=== PATIENT | male | born 1970 | race Caucasian/White ===

== ENCOUNTER 2018-08-11 07:46 | Day surgery (SDC) | payer BC ==
[~2018-08-11] VITALS: Ht 190.5 cm; Wt 102.0 kg
[~2018-08-11 07:46] MED LIST: PANT40TA4 PO
[2018-08-11 08:28] VITALS: Ht 190.5 cm; Wt 102.0 kg
[2018-08-11] MEDS ORDERED: HYDROXYZINE (08:33)
[2018-08-11] MEDS ORDERED: LANSOPRAZOLE (08:33)
[2018-08-11] MEDS ORDERED: ATORVASTATIN (08:33)
[2018-08-11] MEDS ORDERED: VIT B6 (08:33)
[2018-08-11] MEDS ORDERED: JARDIANCE (08:33)
[2018-08-11] MEDS ORDERED: BREO (08:33)
[2018-08-11] MEDS ORDERED: GABAPENTIN (08:33)
[2018-08-11] MEDS ORDERED: LOSARTAN (08:33)
[2018-08-11] MEDS ORDERED: METFORMIN (08:33)
--- NOTE | 2018-08-11 09:30 | PREAC ---
Date/Time of Note Date/Time of Note DATE: 08/11/18 TIME: :28 Anesthesia Eval and Record Evaluation Time Pre-Procedure Interview DATE: 08/11/18 TIME: :28 Age 47 Sex male NPO: 8 hrs Preoperative diagnosis GERD, Abdominal pain Planned procedure EGD, Colonoscopy Past Medical History Past Medical History: Includes Cardio: HTN, Dyslipidemia Endo: Diabetes Pulm: COPD, Asthma Surgery & Anesthesia Issues No known issue Meds Anticoagulation: No Beta Quin within 24 hr: No Reason Beta Quin not given: Pt. not on B-Quin Reported Medications [Breo] No Conflict Check 08/11/18 [Hydroxyzine] No Conflict Check 08/11/18 [Jardiance] No Conflict Check 08/11/18 [Vit B6] No Conflict Check 08/11/18 [Atorvastatin] No Conflict Check 08/11/18 [Atorvastatin] No Conflict Check 08/11/18 [Lansoprazole] No Conflict Check 08/11/18 [Gabapentin] No Conflict Check 08/11/18 [Losartan] No Conflict Check 08/11/18 [Metformin] No Conflict Check 08/11/18 Discontinued Reported Medications Pantoprazole (Protonix) 40 Mg Tabec, 40 MG PO DAILY 09/12/13 Meds reviewed: Yes Allergies Coded Allergies: metronidazole (Unverified Allergy, Unknown, RASH, 08/11/18) Allergies Reviewed: Yes Labs/Studies Labs Reviewed: Reviewed by anesthesiologist test: N/A Studies: ECG Pre-procedure Exam Airway: Adequate mouth opening, Adequate thyromental dist Mallampati: Mallampati II Teeth: Normal Lung: Normal Heart: Normal ASA Physical Status ASA physical status: 3 Emergency: None Planned Anesthetic General/MAC: MAC Planned Pain Management Parenteral pain med Pre-operative Attestations Prior to commencing anesthesia and surgery, the patient was re-evaluated, there was verification of: *The patient's identity *The results of appropriate recent lab work and preoperative vital signs *The above evaluation not changing prior to induction *Anesthetic plan, risk benefits, alternative and complications discussed with patient/family; questions answered; patient/family understands, accepts and wishes to proceed. SHERMAN HENDRIX MD Aug 11, 2018 09:30
[2018-08-11] MEDS ORDERED: LIDOCAINE 2% (SDV) 5 ML INJ ONE (09:31)
[2018-08-11] MEDS ORDERED: PROPOFOL 60 ML ONE (09:31)
[2018-08-11 09:52] VITALS: BP 142/78; PULSE 60; RESP 22
--- NOTE | 2018-08-11 10:17 | PAC ---
Date/Time of Note Date/Time of Note DATE: 08/11/18 TIME: 10:16 Post-Anesthesia Notes Post-Anesthesia Note Last documented vital signs Vital Signs Date Temp Pulse Resp B/P (MAP) Pulse Ox O2 O2 Flow FiO2 Time Delivery Rate 08/11/18 98.2 60 22 142/78 99 Room Air 09:52 (99) Activity: WNL Respiratory function: WNL Cardiovascular function: WNL Mental status: Baseline Pain reasonably controlled: Yes Hydration appropriate: Yes Nausea/Vomiting absent: Yes Comments BP:134/67, P:78, Spo2:100%, T:98,8 SHERMAN HENDRIX MD Aug 11, 2018 10:17
[2018-08-11 10:42] VITALS: BP 125/86; PULSE 58; RESP 12
== END 2018-08-11 11:20 | disposition home or self-care (01) ==
LOC: GIL 07:46
PROVIDERS: ATTEND Internal Medicine Gastroenterology
DX: Z12.11 Encounter for screening for malignant neoplasm of colon (principal); K29.60 Other gastritis without bleeding; K64.4 Residual hemorrhoidal skin tags; E78.5 Hyperlipidemia, unspecified; E11.9 Type 2 diabetes mellitus without complications; I10 Essential (primary) hypertension; J44.9 Chronic obstructive pulmonary disease, unspecified; Z79.84 Long term (current) use of oral hypoglycemic drugs
CPT/HCPCS: 43239; 45378; 82962; 88305; 88312; Z7610

== ENCOUNTER 2018-10-08 13:17 | Inpatient (IN) | payer BC ==
[~2018-10-08] VITALS: Ht 190.5 cm; Wt 101.6 kg
[~2018-10-08 13:17] MED LIST changes: +ATORVASTATIN; +BREO; +GABAPENTIN; +HYDROXYZINE; +JARDIANCE; +LANSOPRAZOLE; +LOSARTAN; +METFORMIN; -PANT40TA4 PO; +VIT B6
--- NOTE | 2018-10-08 13:39 | ERD ---
ER Documentation Chief Complaint Chief Complaint HPI This is a 48-year-old man with history of hypertension, diabetes mellitus, dysli pidemia presenting to [place] this morning with complaints of chest pain beginning yesterday. At [facility] emergency department work-up was done and labs were normal although given his past medical history and his complaints he was admitted to telemetry and his health insurance directed him to [facility] where he was accepted for admission by Dr. Page. Patient was transported here by EMS without complications, and he is asymptomatic at this time without complaints of pain. ROS All systems reviewed and are negative except as per history of present illness. Medications Home Meds Reported Medications Atorvastatin Calcium (Atorvastatin Calcium) 10 Mg Tablet, 10 MG PO QHS, #30 TAB 10/08/18 Metformin Hcl* (Metformin Hcl*) 500 Mg Tablet, 500 MG PO WITH BREAKFAST DINNE, #60 TAB 10/08/18 Empagliflozin (Jardiance) 10 Mg Tablet, 10 MG PO QAM, TAB 10/08/18 Gabapentin* (Gabapentin*) 100 Mg Capsule, 100 MG PO BID, #90 CAP 10/08/18 Losartan Potassium* (Losartan Potassium*) 50 Mg Tablet, 50 MG PO DAILY, TAB 10/08/18 Discontinued Reported Medications [Breo] No Conflict Check 08/11/18 [Hydroxyzine] No Conflict Check 08/11/18 [Jardiance] No Conflict Check 08/11/18 [Vit B6] No Conflict Check 08/11/18 [Atorvastatin] No Conflict Check 08/11/18 [Atorvastatin] No Conflict Check 08/11/18 [Lansoprazole] No Conflict Check 08/11/18 [Gabapentin] No Conflict Check 08/11/18 [Losartan] No Conflict Check 08/11/18 [Metformin] No Conflict Check 08/11/18 Allergies Allergies: Coded Allergies: metronidazole (Unverified Allergy, Unknown, RASH, 10/08/18) Uncoded Allergies: 'CONTRAST' (Allergy, Unknown, 10/08/18) PMhx/Soc HTN, Dyslipidemia, Diabetes, COPD, Asthma History of Surgery: No Anesthesia Reaction: No Hx Neurological Disorder: No Hx Respiratory Disorders: Yes (ASTHMA) Hx Cardiac Disorders: Yes (HTN; HIGH CHOLESTEROL) Hx Psychiatric Problems: No Hx Miscellaneous Medical Probl: No Hx Alcohol Use: No Hx Substance Use: No Hx Tobacco Use: No FmHx Family History: No diabetes Physical Exam Vitals Vital Signs Date Temp Pulse Resp B/P (MAP) Pulse Ox O2 O2 Flow FiO2 Time Delivery Rate 10/08/18 62 16 118/70 100 Nasal 2.0 14:40 (86) Cannula 10/08/18 Nasal 2 14:04 Cannula 10/08/18 98.1 61 20 122/84 96 13:45 (97) Per nurse's records Physical Exam GENERAL: Well-developed, well-nourished, well-hydrated, in no apparent distress, afebrile HEENT: Moist mucous membranes, pink conjunctiva, no cervical spine tenderness or step-off deformities, no goiter, no jaundice or icterus NEURO: Alert and oriented 3, cranial nerves II through XII intact bilaterally, pupils equal round reactive to light, CARDIAC: Regular rate and rhythm, no murmurs rubs or gallops LUNGS: Clear bilaterally no wheezing crackles or stridor ABDOMEN: Soft nontender, no guarding, no rigidity, no rebound, no psoas sign no obturator sign. SKIN: Warm and dry to touch, no abrasions, contusions, EXTREMITIES: No clubbing cyanosis or edema, calves are bilaterally symmetrical, no Homans sign, no popliteal cord sign. Distal pulses equal and bilateral Result Diagram: 10/08/18 1404 10/08/18 1404 Results 24 hrs Laboratory Tests Test 10/08/18 14:04 White Blood Count 6.3 10^3/ul Red Blood Count 5.34 10^6/ul Hemoglobin 16.3 g/dl Hematocrit 47.6 % Mean Corpuscular Volume 89.1 fl Mean Corpuscular Hemoglobin 30.5 pg Mean Corpuscular Hemoglobin Concent 34.2 g/dl Red Cell Distribution Width 12.7 % Platelet Count 233 10^3/UL Mean Platelet Volume 11.7 fl Immature Granulocytes % 0.200 % Neutrophils % 56.9 % Lymphocytes % 32.3 % Monocytes % 8.9 % Eosinophils % 1.1 % Basophils % 0.6 % Nucleated Red Blood Cells % 0.0 /100WBC Immature Granulocytes # 0.010 10^3/ul Neutrophils # 3.6 10^3/ul Lymphocytes # 2.0 10^3/ul Monocytes # 0.6 10^3/ul Eosinophils # 0.1 10^3/ul Basophils # 0.0 10^3/ul Nucleated Red Blood Cells # 0.0 10^3/ul Sodium Level 142 mmol/L Potassium Level 4.0 mmol/L Chloride Level 107 mmol/L Carbon Dioxide Level 26 mmol/L Anion Gap 9 Blood Urea Nitrogen 14 mg/dl Creatinine 0.76 mg/dl Est Glomerular Filtrat Rate mL/min > 60 mL/min Glucose Level 126 mg/dl Calcium Level 9.3 mg/dl Creatine Kinase 124 IU/L Creatine Kinase Index 0.6 Creatinine Kinase MB (Mass) 0.74 ng/ml Troponin I < 0.012 ng/ml Current Medications Medications Dose Sig/Mati Start Time Status Last (Trade) Ordered Route PRN Stop Time Admin Dose Reason Admin Sodium 500 ml @ Q1H STAT 10/08/18 DC 10/08/18 Chloride 500 mls/hr IV 13:47 14:13 10/08/18 14:46 Ibuprofen 600 mg ONCE ONCE 10/08/18 DC 10/08/18 (Motrin) PO 14:30 14:38 10/08/18 14:31 Procedures/MDM IV line was established 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 Patient was afebrile I reviewed [facility] EKG revealed a normal sinus rhythm 71 bpm, right ventricular conduction delay QRS duration 102 ms, left axis deviation, no concerning ST elevations or depressions noted Repeat CBC and electrolytes are normal, troponin negative EKG in our emergency department revealed a sinus bradycardia 52 bpm, normal axis, narrow QRS complex, no concerning ST elevations or depressions noted, diffuse flattened T waves I spoke to admitting physician Dr. Page and he is aware the patient is in our emergency department and agreed with our plan. Patient to be admitted to telemetry setting. Departure Diagnosis: Primary Impression: Chest pain Chest pain type: unspecified Qualified Codes: R07.9 - Chest pain, unspecified Condition: CHINTAN Doyle MD October 08, 2018 13:39
[2018-10-08] MEDS ORDERED: SOD CHLORIDE 0.9% 500 ML IV STA (13:47)
[2018-10-08] MEDS ORDERED: GABA100C14 PO (14:06)
[2018-10-08] MEDS ORDERED: LOSA50TA14 PO (14:06)
[2018-10-08] MEDS ORDERED: METF500T24 PO (14:07)
[2018-10-08] MEDS ORDERED: ATOR10TA65 PO (14:07)
[2018-10-08] MEDS ORDERED: EMPA10TA PO (14:07)
[2018-10-08] MEDS ORDERED: IBUPROFEN 600 MG TAB PO ONE (14:30)
[2018-10-08 19:15] VITALS: BP 126/76; PULSE 53; RESP 19
[2018-10-08] MEDS ORDERED: NITROGLYCERIN (SL) 0.4 MG TAB SL PRN ×2 (19:30)
[2018-10-08] MEDS ORDERED: IBUPROFEN 400 MG TAB PO PRN (19:30)
[2018-10-08 20:00] VITALS: PULSE 56; Ht 190.5 cm; Wt 101.6 kg
[2018-10-08] MEDS ORDERED: GLUCOSE GEL 15 GRAM TUBE PO PRN ×2 (20:00)
[2018-10-08] MEDS ORDERED: GLUCOSE GEL 15 GRAM TUBE BUCCAL PRN (20:00)
[2018-10-08] MEDS ORDERED: GLUCAGON 1 MG INJ IM PRN (20:00)
[2018-10-08] MEDS ORDERED: DEXTROSE 50% 50 ML SYRINGE IV PRN ×2 (20:00)
[2018-10-08] MEDS: GABAPENTIN 100 MG CAP PO SCH (20:18)
[2018-10-08] MEDS: ACCU-CHEK XX SCH (20:18)
[2018-10-08] MEDS ORDERED: ATORVASTATIN 10 MG TAB PO SCH (21:00)
[2018-10-08] MEDS ORDERED: ACCU-CHEK XX SCH (21:00)
--- NOTE | 2018-10-08 21:34 | QN ---
Documentation Comment [id number] MADDY ALSTON MD October 08, 2018 21:34
[2018-10-09] VITALS (8 sets, daily range): BP systolic 116–127; BP diastolic 77–89; PULSE 53–69; RESP 18–20
--- NOTE | 2018-10-09 00:09 | CONS ---
DATE OF ADMISSION: 10/08/2018 DATE OF CONSULTATION: 10/08/2018 REASON FOR CONSULTATION: Chest pain. REQUESTING PHYSICIAN: Yon Alston MD HISTORY OF PRESENT ILLNESS: Mr. 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 The patient describes the chest pain to me as a stabbing pain, but to the outside hospital described as a burning sensation similar to his history of gastroesophageal reflux disease. The patient additionally told the outside hospital that he had a chest pain radiating to his arm the day before. He tells me that this is the first time he had any pain similar to this. At the outside hospital, the patient's blood pressure was 145/80, pulse of 74, afebrile, satting 98%. The patient's labs notable for sodium of 140, potassium 3.7, creatinine 0.9 and BUN 15. Troponin negative. INR of less than 1. White blood cell count 7.4, platelet count 212. The patient's electrocardiogram was interpreted as having normal sinus rhythm with no significant ST elevations or depressions. EKG is not available in the chart for my review. The patient was treated Metoprolol 50, nitro paste 1 inch, aspirin 162 mg and subsequently transferred to [facility] due to insurance reasons. Since arrival at [facility], the patient then has had improvement in chest pain. He denies ongoing chest pain at this time. The patient's vital signs here have been relatively stable with very mild bradycardia to 59 and the patient has a troponin negative x1 here. PAST MEDICAL HISTORY: As above in HPI. MEDICATIONS PRIOR TO ADMIT: 1. Atorvastatin 10 mg at bedtime. 2. Losartan 50 mg daily. 3. Gabapentin 100 mg b.i.d. 4. Metformin 500 mg daily. 5. Jardiance. ALLERGIES: 1. FLAGYL. 2. CONTRAST. SOCIAL HISTORY: No tobacco, ETOH or illicit drug use. FAMILY HISTORY: No history of sudden cardiac or early CAD. REVIEW OF SYSTEMS: As above in HPI. CONSTITUTIONAL: No fevers or chills. PULMONARY: Current shortness of breath. CARDIOVASCULAR: Chest pain. GASTROINTESTINAL: No vomiting. GENITOURINARY: No renal failure. PSYCHIATRIC: No documented psych history. NEUROLOGIC: No documented history of CVA. ENDOCRINE: Diabetes mellitus. PHYSICAL EXAMINATION: VITAL SIGNS: Temperature 98, blood pressure 118/70, pulse 60, respirations 18, satting 100% on 2 liters. GENERAL: The patient is alert, awake, in no acute distress with intermittent chest pain. NECK: JVP approximately 8 cm water. CHEST: Fair air movement throughout. HEART: Regular rate and rhythm. Normal S1, S2, I/ systolic murmur, nondisplaced PMI. ABDOMEN: Positive bowel sounds, soft. EXTREMITIES: No significant pitting edema, 1+ pulses bilaterally posterior tibial. LABORATORY DATA: Most recent from [facility], white blood cell count 6.3, hemoglobin 6.3, platelet count 233. Sodium 142, potassium 4.0, creatinine 0.7, BUN 14. Troponin negative. IMAGING STUDIES: No imaging studies for my review at this time. ELECTROCARDIOGRAM: EKG from [place] is in the chart, reveals normal sinus rhythm with a rate of 71 with normal axis, incomplete right bundle branch block, no significant ST-T abnormalities. IMPRESSION: 1. Chest pain, somewhat atypical for a true cardiac etiology. 2. Hypertension under reasonable control. 3. Dyslipidemia. 4. Diabetes mellitus. 5. Incomplete right bundle branch block on EKG. RECOMMENDATIONS: 1. At this time, would complete the patient's rule out for myocardial infarction to ensure the patient's chest pain is not due to acute coronary syndromes or acute myocardial infarction. 2. Would check a 2D echo for reassessment of patient's ejection fraction, wall motion and to rule out any major valve abnormalities. 3. Check serial EKGs to assess for ongoing changes; EKG in the morning, EKG for complaints of chest pain or change in rhythm. 4. We will attempt to give the patient sublingual nitroglycerin for recurrent episodes of chest pain and follow response. 5. Agree with dose of ibuprofen which the patient has gotten and does not have any more chest pain at this time. The chest pain is concerning for possible costochondritis the way he describes it at this time versus GERD as described earlier to [place] and, therefore, will additionally give the patient a proton pump inhibitor and follow response. Thank you for allowing me to take part in the care of this patient. I will continue to follow very closely with you with recommendations to be made as the patient progresses through his inpatient hospital clinical course. Dictated By: GUILLERMO AGARWAL/NTS Conf#: [id number] DID#: [id number] CC: YON ALSTON MD;*EndCC* MTDD
--- NOTE | 2018-10-09 01:29 | HP ---
DATE OF ADMISSION: 10/08/2018 HISTORY OF PRESENT ILLNESS: The patient is a young male with history of dyspepsia. Previously, patient presented with chest pain to [facility], transferred here for further management. Blood pressure 123/76. The patient has history of dyspepsia and gastritis. PAST MEDICAL HISTORY: Positive for dyspepsia, gastritis, hypertension. ALLERGY HISTORY: CONTRAST SOCIAL HISTORY: Negative. FAMILY HISTORY: Negative. MEDICATION HISTORY: At home, patient is on: 1. Atorvastatin. 2. The patient is on gabapentin. 3. Losartan. 4. Metformin. REVIEW OF SYSTEMS: HEENT: Unremarkable. RESPIRATORY: Unremarkable. CARDIOVASCULAR: No chest pain or palpitation at this point. ABDOMEN: Unremarkable. EXTREMITIES: Unremarkable. MUSCULOSKELETAL: Unremarkable. PHYSICAL EXAMINATION: GENERAL: The patient is awake and alert. VITAL SIGNS: Stable. HEENT: Head is atraumatic, normocephalic. Pupils equal, reactive. NECK: Supple. No JVD. LUNGS: Clear. CARDIOVASCULAR: S1, S2 are normal. ABDOMEN: Soft, nontender. Bowel sounds present. No palpable mass. EXTREMITIES: No cyanosis, clubbing, or edema. CENTRAL NERVOUS SYSTEM: The patient is awake, alert with no focal deficit. IMPRESSION: 1. Acute coronary syndrome. 2. chest pain. 3. Dyspepsia. 4. Hypertension. 5. Diabetes mellitus. PLAN: To continue home medication. Cardiology consultation. PPI and aspirin. Orders were done. Dictated By: MADDY ALSTON MD BS/BRENDA Conf#: [id number] DID#: [id number] MTDD
[2018-10-09] MEDS ORDERED: PANTOPRAZOLE (EC) 40 MG TAB PO SCH (06:00)
[2018-10-09] MEDS: ACCU-CHEK XX SCH ×2 (07:00→11:24)
[2018-10-09] MEDS: INSULIN ASPART [NOVOLOG] 3 ML PEN SC SCH ×2 (07:52→11:24)
[2018-10-09] MEDS ORDERED: EMPAGLIFLOZIN 10 MG TABLET PO SCH (08:00)
[2018-10-09] MEDS ORDERED: metFORMIN 500 MG TAB PO SCH (08:00)
[2018-10-09] MEDS: GABAPENTIN 100 MG CAP PO SCH (08:35)
[2018-10-09] MEDS ORDERED: LOSARTAN 50 MG TAB PO SCH (09:00)
[2018-10-09] MEDS ORDERED: ASPIRIN 81 MG TAB PO SCH (09:00)
--- NOTE | 2018-10-09 11:04 | PN ---
Date/Time of Note Date/Time of Note DATE: 10/09/18 TIME: 11:04 Assessment/Plan VTE Prophylaxis Risk score (from [facility] [place]0 risk: 1 SCD applied (from [facility] [place]): No SCD contraindicated: low risk/ambulating Pharmacological prophylaxis: NA/contraindicated Pharm contraindication: low risk/ambulating Lines/Catheters IV Catheter Type (from [facility] [place]): [place] Assessment/Plan Hospital Course 1. Acute coronary syndrome.Rulled out. trop is negative 2. GERD 3. Dyspepsia. 4. Hypertension, controlled. 5. Diabetes mellitus type II controlled with current meds. 6. Overweight 7. Dyslipidemia Assessment/Plan Cardiology consultation seen. -start Lopid to Atorvastatin, diet explain - PPI and carafate -EGD and colonoscopy results from previous reviewed, showed gastritis -pt is ambulating. - Result Diagram: 10/09/1821210/09/18212 Results 24hrs Laboratory Tests Test 10/08/18 14:04 10/08/18 20:02 10/08/18 20:25 10/09/18 02:13 White Blood Count 6.3 8.4 # Red Blood Count 5.34 5.26 Hemoglobin 16.3 16.5 Hematocrit 47.6 47.5 Mean Corpuscular 89.1 90.3 Volume Mean Corpuscular 30.5 31.4 Hemoglobin Mean Corpuscular 34.2 34.7 Hemoglobin Concent Red Cell 12.7 12.9 Distribution Width Platelet Count 233 227 Mean Platelet Volume 11.7 H 12.1 H Immature 0.200 0.200 Granulocytes % Neutrophils % 56.9 56.3 Lymphocytes % 32.3 34.1 Monocytes % 8.9 7.1 Eosinophils % 1.1 1.8 Basophils % 0.6 0.5 Nucleated Red Blood 0.0 0.0 Cells % Immature 0.010 0.020 Granulocytes # Neutrophils # 3.6 4.7 Lymphocytes # 2.0 2.9 Monocytes # 0.6 0.6 Eosinophils # 0.1 0.2 Basophils # 0.0 0.0 Nucleated Red Blood 0.0 0.0 Cells # Sodium Level 142 141 Potassium Level 4.0 4.1 Chloride Level 107 106 Carbon Dioxide Level 26 26 Anion Gap 9 9 Blood Urea Nitrogen 14 16 Creatinine 0.76 0.84 Est Glomerular > 60 > 60 Filtrat Rate mL/min Glucose Level 126 139 Calcium Level 9.3 9.0 Creatine Kinase 124 103 109 Creatine Kinase 0.6 0.6 0.7 Index Creatinine Kinase MB 0.74 0.64 0.73 (Mass) Troponin I < 0.012 < 0.012 < 0.012 Bedside Glucose 125 Triglycerides Level 318 H Cholesterol Level 163 LDL Cholesterol, 75 Calculated HDL Cholesterol 24 L Cholesterol/HDL 6.7 Ratio Test 10/09/18 07:52 Bedside Glucose 123 Exam/Review of Systems Exam Vitals Vital Signs Date Temp Pulse Resp B/P (MAP) Pulse Ox O2 O2 Flow FiO2 Time Delivery Rate 10/09/18 59 08:17 10/09/18 97.8 19 125/81 97 07:17 (96) 10/09/18 2.0 05:15 10/08/18 Nasal 20:00 Cannula Intake and Output 10/08/18 10/08/18 10/09/18 1515:00 23:00 07:00 IntakeIntake Total 500 ml 400 ml BalanceBalance 500 ml 400 ml Results Results 24hrs Laboratory Tests Test 10/08/18 14:04 10/08/18 20:02 10/08/18 20:25 10/09/18 02:13 White Blood Count 6.3 8.4 # Red Blood Count 5.34 5.26 Hemoglobin 16.3 16.5 Hematocrit 47.6 47.5 Mean Corpuscular 89.1 90.3 Volume Mean Corpuscular 30.5 31.4 Hemoglobin Mean Corpuscular 34.2 34.7 Hemoglobin Concent Red Cell 12.7 12.9 Distribution Width Platelet Count 233 227 Mean Platelet Volume 11.7 H 12.1 H Immature 0.200 0.200 Granulocytes % Neutrophils % 56.9 56.3 Lymphocytes % 32.3 34.1 Monocytes % 8.9 7.1 Eosinophils % 1.1 1.8 Basophils % 0.6 0.5 Nucleated Red Blood 0.0 0.0 Cells % Immature 0.010 0.020 Granulocytes # Neutrophils # 3.6 4.7 Lymphocytes # 2.0 2.9 Monocytes # 0.6 0.6 Eosinophils # 0.1 0.2 Basophils # 0.0 0.0 Nucleated Red Blood 0.0 0.0 Cells # Sodium Level 142 141 Potassium Level 4.0 4.1 Chloride Level 107 106 Carbon Dioxide Level 26 26 Anion Gap 9 9 Blood Urea Nitrogen 14 16 Creatinine 0.76 0.84 Est Glomerular > 60 > 60 Filtrat Rate mL/min Glucose Level 126 139 Calcium Level 9.3 9.0 Creatine Kinase 124 103 109 Creatine Kinase 0.6 0.6 0.7 Index Creatinine Kinase MB 0.74 0.64 0.73 (Mass) Troponin I < 0.012 < 0.012 < 0.012 Bedside Glucose 125 Triglycerides Level 318 H Cholesterol Level 163 LDL Cholesterol, 75 Calculated HDL Cholesterol 24 L Cholesterol/HDL 6.7 Ratio Test 10/09/18 07:52 Bedside Glucose 123 Medications Medication Current Medications Atorvastatin Calcium (Lipitor) 10 mg QHS PO Last administered on 10/08/18 20:18; Admin Dose 10 MG; Start 10/08/18 at 21:00 Losartan Potassium (Cozaar) 50 mg DAILY PO Last administered on 10/09/18 08:35; Admin Dose 50 MG; Start 10/09/18 at 09:00 Ibuprofen (Motrin) 400 mg Q6H PRN PO MILD PAIN(1-3) OR TEMP>38C; Start 10/08/18 at 19:30 Nitroglycerin (Nitroglycerin (Sl Tab) 0.4 Mg) 1 tab Q5M PRN SL ANGINA; Start 10/08/18 at 19:30 Empaglifozin (Jardiance) 10 mg QAM@0800 PO Last administered on 10/09/18 08:35; Admin Dose 10 MG; Start 10/09/18 at 08:00 Gabapentin (Neurontin) 100 mg BID PO Last administered on 10/09/18 08:35; Admin Dose 100 MG; Start 10/08/18 at 21:00 Metformin HCl (Glucophage) 500 mg WITH BREAKFAST DINNE PO Last administered on 10/09/18at 08:34; Admin Dose 500 MG; Start 10/09/18 at 08:00 Diagnostic Test (Pha) (Accu-Chek) 1 ea AC MEALS AND BEDTIME XX Last administered on 10/08/18at 20:18; Admin Dose 1 EA; Start 10/08/18 at 21:00 Miscellaneous Information 1 ea NOTE XX ; Start 10/08/18 at 20:00 Glucose (Glutose) 15 gm Q15M PRN PO DECREASED GLUCOSE; Start 10/08/18 at 20:00 Glucose (Glutose) 22.5 gm Q15M PRN PO DECREASED GLUCOSE; Start 10/08/18 at 20:00 Dextrose (D50w Syringe) 25 ml Q15M PRN IV DECREASED GLUCOSE; Start 10/08/18 at 20:00 Dextrose (D50w Syringe) 50 ml Q15M PRN IV DECREASED GLUCOSE; Start 10/08/18 at 20:00 Glucagon (Glucagen) 1 mg Q15M PRN IM DECREASED GLUCOSE; Start 10/08/18 at 20:00 Glucose (Glutose) 15 gm Q15M PRN BUCCAL DECREASED GLUCOSE; Start 10/08/18 at 20:00 Aspirin (Aspirin) 81 mg DAILY PO Last administered on 10/09/18at 08:35; Admin Dose 81 MG; Start 10/09/18 at 09:00 Pantoprazole (Protonix Tab) 40 mg DAILY@06 PO Last administered on 10/09/18at 06:00; Admin Dose 40 MG; Start 10/09/18 at 06:00 Insulin Aspart (Novolog Insulin Pen) NOVOLOG *MILD* ALGORITHM WITH MEALS BEDTIME SC ; Start 10/09/18 at 08:00 TIFFANIE RUBIN October 09, 2018 11:04
--- NOTE | 2018-10-09 11:23 | DS ---
Date/Time of Note Date/Time of Note DATE: 10/09/18 TIME: 11:23 Discharge Summary Admission/Discharge Info Admit Date/Time October 08, 2018 at 13:50 Discharge Date/Time Discharge Diagnosis GERD Consults Dr Rodríguez cardiology Hospital Course Mr. Amol Pérez is a 48-year-old male with history of hypertension, overweight, GERD, diabetes mellitus and dyslipidemia who initially presented to an outside hospital with complaints of substernal chest pain beginning in the tower climber hours awakening him from sleep. The patient describes the chest pain to me as a stabbing pain, but to the outside hospital described as a burning sensation similar to his history of gastroesophageal reflux disease. The patient additionally told the outside hospital that he had a chest pain radiating to his arm the day before. At the outside hospital, the patient's blood pressure was 145/80, pulse of 74, afebrile, sating 98%. The patient's labs notable for sodium of 140, potassium 3.7, creatinine 0.9 and BUN 15. Troponin negative. INR of less than 1. White blood cell count 7.4, hemoglobin 13, platelet count 212. The patient's electrocardiogram was interpreted as having normal sinus rhythm with no significant ST elevations or depressions. The patient was treated there with Metoprolol 50, nitro paste 1 inch, aspirin 162 mg and subsequently transferred to [facility] due to insurance reasons. Since arrival at [facility], the patient then has had improvement in chest pain. He denies ongoing chest pain at this time. The patient's vital signs here have been relatively stable with very mild bradycardia to 59 and the patient has a troponin negative x1 here. PAST MEDICAL HISTORY: As above in HPI. MEDICATIONS PRIOR TO ADMIT: 1. Atorvastatin 10 mg at bedtime. 2. Losartan 50 mg daily. 3. Gabapentin 100 mg b.i.d. 4. Metformin 500 mg daily. 5. Jardiance. ALLERGIES: 1. FLAGYL. 2. CONTRAST. SOCIAL HISTORY: No tobacco, ETOH or illicit drug use. IMPRESSION: 1. Chest pain, somewhat atypical for a true cardiac etiology. 2. Hypertension under reasonable control. 3. Dyslipidemia. 4. Diabetes mellitus. 5. Incomplete right bundle branch block on EKG. 6. GERD with gastritis evident on EGD During hospitalization pt was seen by dr Rodríguez, cardiology. He RECOMMENDed to check a 2D echo for reassessment of patient's ejection fraction, wall motion and to rule out any major valve abnormalities. Pt was on telemetry service and he checked serial EKGs to assess for ongoing changes; pt demonstrated RBBB. The pt was given dose of ibuprofen and he does not have any more chest pain at this time. The chest pain is concerning for possible costochondritis the way he describes it at this time versus GERD as described earlier to [place] and, therefore, will additionally give the patient a proton pump inhibitor and follow response. Pt reported that he used almost daily a PPI but his PCP, d/ed it due to unknown reason. Pt was ambualing freely and he was d/c home Home Meds Active Scripts Sucralfate (Carafate) 1 Gm Tablet, 1 GM PO QID for 14 Days, TAB Prov:TIFFANIE RUBIN 10/09/18 Pantoprazole* (Pantoprazole*) 40 Mg Tablet.dr, 40 MG PO DAILY@06 for 30 Days Prov:TIFFANIE RUBIN 10/09/18 Nitroglycerin* (Nitroglycerin* SL) 0.4 Mg Tab.subl, 1 TAB SL Q5M PRN for ANGINA for 30 Days Prov:TIFFANIE RUBIN 10/09/18 Gemfibrozil* (Gemfibrozil*) 600 Mg Tablet, 600 MG PO ONCE for 28 Days, TAB Prov:TIFFANIE RUBIN 10/09/18 Reported Medications Atorvastatin Calcium (Atorvastatin Calcium) 10 Mg Tablet, 10 MG PO QHS, #30 TAB 10/08/18 Metformin Hcl* (Metformin Hcl*) 500 Mg Tablet, 500 MG PO WITH BREAKFAST DINNE, #60 TAB 10/08/18 Empagliflozin (Jardiance) 10 Mg Tablet, 10 MG PO QAM, TAB 10/08/18 Gabapentin* (Gabapentin*) 100 Mg Capsule, 100 MG PO BID, #90 CAP 10/08/18 Losartan Potassium* (Losartan Potassium*) 50 Mg Tablet, 50 MG PO DAILY, TAB 10/08/18 Discontinued Reported Medications [Breo] No Conflict Check 08/11/18 [Hydroxyzine] No Conflict Check 08/11/18 [Jardiance] No Conflict Check 08/11/18 [Vit B6] No Conflict Check 08/11/18 [Atorvastatin] No Conflict Check 08/11/18 [Atorvastatin] No Conflict Check 08/11/18 [Lansoprazole] No Conflict Check 08/11/18 [Gabapentin] No Conflict Check 08/11/18 [Losartan] No Conflict Check 08/11/18 [Metformin] No Conflict Check 08/11/18 Follow-up Plan pcp 1 week Primary Care Provider Not On Staff Doctor Time spent on discharge: < 30 minutes Pending Labs Laboratory Tests Test 10/08/18 14:04 10/08/18 20:02 10/08/18 20:25 10/09/18 02:13 White Blood 6.3 8.4 Count 10^3/ul (4.8-10 10^3/ul (4.8-1 .8) 0.8) Red Blood 5.34 5.26 Count 10^6/ul (4.70-6 10^6/ul (4.70- .10) 6.10) Hemoglobin 16.3 16.5 g/dl (14.0-18.0 g/dl (14.0-18. ) 0) Hematocrit 47.6 47.5 % (42.0-52.0) % (42.0-52.0) Mean 89.1 90.3 Corpuscular fl (82.0-101.0) fl (82.0-101.0 Volume ) Mean 30.5 31.4 Corpuscular pg (29.0-33.0) pg (29.0-33.0) Hemoglobin Mean 34.2 34.7 Corpuscular g/dl (32.0-37.0 g/dl (32.0-37. Hemoglobin Conc ) 0) ent Red Cell 12.7 12.9 Distribution % (11.5-14.5) % (11.5-14.5) Width Platelet Count 233 227 10^3/UL (140-41 10^3/UL (140-4 5) 15) Mean Platelet 11.7 12.1 Volume fl (7.4-10.4) fl (7.4-10.4) Immature 0.200 0.200 Granulocytes % % (0.001-0.429) % (0.001-0.429 ) Neutrophils % 56.9 56.3 % (39.0-77.0) % (39.0-77.0) Lymphocytes % 32.3 34.1 % (15.0-51.0) % (15.0-51.0) Monocytes % 8.9 7.1 % (0.0-11.0) % (0.0-11.0) Eosinophils % 1.1 % (0.0-7.0) 1.8 % (0.0-7.0) Basophils % 0.6 % (0.0-2.0) 0.5 % (0.0-2.0) Nucleated Red 0.0 0.0 Blood Cells % /100WBC (0.0-0. /100WBC (0.0-0 0) .0) Immature 0.010 0.020 Granulocytes # 10^3/ul (0.0-0. 10^3/ul (0.0-0 031) .031) Neutrophils # 3.6 4.7 10^3/ul (1.6-7. 10^3/ul (1.6-7 5) .5) Lymphocytes # 2.0 2.9 10^3/ul (0.8-2. 10^3/ul (0.8-2 9) .9) Monocytes # 0.6 0.6 10^3/ul (0.3-0. 10^3/ul (0.3-0 9) .9) Eosinophils # 0.1 0.2 10^3/ul (0.0-0. 10^3/ul (0.0-0 5) .5) Basophils # 0.0 0.0 10^3/ul (0.0-0. 10^3/ul (0.0-0 1) .1) Nucleated Red 0.0 0.0 Blood Cells # 10^3/ul (0.0-0. 10^3/ul (0.0-0 0) .0) Sodium Level 142 141 mmol/L (135-144 mmol/L (135-14 ) 4) Potassium 4.0 4.1 Level mmol/L (3.5-5.1 mmol/L (3.5-5. ) 1) Chloride Level 107 106 mmol/L (97-110) mmol/L (97-110 ) Carbon Dioxide 26 26 Level mmol/L (21-31) mmol/L (21-31) Anion Gap 9 (5-13) 9 (5-13) Blood Urea 14 mg/dl (7-20) 16 Nitrogen mg/dl (7-20) Creatinine 0.76 0.84 mg/dl (0.61-1.2 mg/dl (0.61-1. 4) 24) Est Glomerular > 60 > 60 Filtrat mL/min (>60) mL/min (>60) Rate mL/min Glucose Level 126 139 mg/dl (70-220) mg/dl (70-220) Calcium Level 9.3 9.0 mg/dl (8.4-10.2 mg/dl (8.4-10. ) 2) Creatine 124 103 109 Kinase IU/L (23-200) IU/L (23-200) IU/L (23-200) Creatine Kinase 0.6 0.6 0.7 Index Creatinine 0.74 0.64 0.73 Kinase MB ng/ml (0.0-2.4) ng/ml (0.0-2.4 ng/ml (0.0-2.4 (Mass) ) ) Troponin I < 0.012 < 0.012 < 0.012 ng/ml (0.000-0. ng/ml (0.000-0 ng/ml (0.000-0 120) .120) .120) Bedside 125 Glucose mg/dL (70-220) Triglycerides 318 Level mg/dl (0-149) Cholesterol 163 Level mg/dl (100-200 ) LDL 75 mg/dl Cholesterol, Calculated HDL 24 Cholesterol mg/dl (27-67) Cholesterol/HDL 6.7 RATIO Ratio Test 10/09/18 07:52 Bedside 123 Glucose mg/dL (70-220) TIFFANIE RUBIN October 09, 2018 11:23
--- NOTE | 2018-10-09 11:27 | PDOCDIS ---
Discharge Instructions DIAGNOSIS Discharge Diagnosis gastritis, triglyceridemia. CONDITION [id number] Patient Condition: [id number] Stable HOME CARE INSTRUCTIONS: [id number] Diet Instructions: [id number] Low Fat /Cholesterol [id number] Special Diet: [id number] [id number] Activity Restrictions: [id number] Slowly Increase Activity Rest between Activity Avoid heavy lifting [id number] Bathing Restrictions: [id number] Shower FOLLOW UP/APPOINTMENTS Follow-up Plan pcp 1 week TIFFANIE RUBIN October 09, 2018 11:27
[2018-10-09] MEDS ORDERED: SUCR1TAB35 PO (11:28)
[2018-10-09] MEDS ORDERED: GEMF600T8 PO (11:28)
[2018-10-09] MEDS ORDERED: PANT40TA4 PO (11:28)
[2018-10-09] MEDS ORDERED: NITR0.4T32 SL (11:28)
[2018-10-09] MEDS ORDERED: GEMFIBROZIL 600 MG TAB PO ONE (11:30)
[2018-10-09] MEDS ORDERED: SUCRALFATE 1 GM TAB PO SCH (13:00)
--- NOTE | 2018-10-09 19:29 | RADRPT ---
Vent Rate: 52 bpm RR Interval: 1144 msec ID Interval: 157 msec QRS Duration: 99 msec QT Interval: 424 msec QTC Interval: 396 msec P-R-T [place]: 58 - 6 - 33 degrees Sinus rhythm...normal P axis, V-rate 50- 99 Electronically Signed By: Tyree Rodríguez
== END 2018-10-09 13:00 | disposition home or self-care (01) | DRG 313 ==
LOC: E/R 13:17 → 6WM 13:50
PROVIDERS: ADMIT Internal Medicine Nephrology; ATTEND Internal Medicine Nephrology
DX: R07.89 Other chest pain (principal); I10 Essential (primary) hypertension; E78.5 Hyperlipidemia, unspecified; E11.9 Type 2 diabetes mellitus without complications; K21.9 Gastro-esophageal reflux disease without esophagitis
CPT/HCPCS: 80048; 80061; 82550; 82553; 82962; 84484; 85025; 93005; J1815; J7040